=== PATIENT | female | born 1930 | race Caucasian/White ===

== ENCOUNTER 2016-09-02 14:00 | Outpatient (CLI) | payer OTHER ==
--- NOTE | 2016-09-02 15:34 | DIAGNOSTIC IMAGING REPORT ---
PROCEDURE: US BILATERAL CAROTID DOPPLER INDICATION: FACIAL ASYMMETRY TECHNIQUE: Color Doppler duplex imaging of the carotid and vertebral vessels. COMPARISON: None. FINDINGS: Right carotid system: No significant stenosis visualized. The waveforms are normal. Left carotid system: No significant stenosis visualized. The waveforms are normal. Vertebral System: Antegrade vertebral artery flow bilaterally. Right common carotid artery peak systolic velocity 99.1 cm/second. Right internal carotid artery peak systolic velocity 98.0 cm/second. Right external carotid artery peak systolic velocity 95.7 cm/second. Right qjvoynlt-fa-lcsmiv carotid artery ratio 1.3 Right vertebral artery peak systolic velocity 69.6 cm/second. Left common carotid artery peak systolic velocity 90.1 cm/second. Left internal carotid artery peak systolic velocity 94.8 cm/second. Left external carotid artery peak systolic velocity 113.6 cm/second. Left eqmolcqw-io-qbrjvv carotid artery ratio 1.1 Left vertebral artery peak systolic velocity 60.5 cm/second. IMPRESSION: 1. No hemodynamically significant stenosis in either carotid system. Minimal plaque bilaterally. 2. Antegrade vertebral artery flow bilaterally. Velocity criteria are extrapolated from diameter data as defined by the Society of Radiologists in Ultrasound Consensus Conference, Radiology 2003; 229; 340-346.
--- NOTE | 2016-09-02 15:34 | DIAGNOSTIC IMAGING REPORT ---
PROCEDURE: US BILATERAL CAROTID DOPPLER INDICATION: FACIAL ASYMMETRY TECHNIQUE: Color Doppler duplex imaging of the carotid and vertebral vessels. COMPARISON: None. FINDINGS: Right carotid system: No significant stenosis visualized. The waveforms are normal. Left carotid system: No significant stenosis visualized. The waveforms are normal. Vertebral System: Antegrade vertebral artery flow bilaterally. Right common carotid artery peak systolic velocity 99.1 cm/second. Right internal carotid artery peak systolic velocity 98.0 cm/second. Right external carotid artery peak systolic velocity 95.7 cm/second. Right ndxkwber-pz-ntimak carotid artery ratio 1.3 Right vertebral artery peak systolic velocity 69.6 cm/second. Left common carotid artery peak systolic velocity 90.1 cm/second. Left internal carotid artery peak systolic velocity 94.8 cm/second. Left external carotid artery peak systolic velocity 113.6 cm/second. Left cpluxdej-nz-nfoynp carotid artery ratio 1.1 Left vertebral artery peak systolic velocity 60.5 cm/second. IMPRESSION: 1. No hemodynamically significant stenosis in either carotid system. Minimal plaque bilaterally. 2. Antegrade vertebral artery flow bilaterally. Velocity criteria are extrapolated from diameter data as defined by the Society of Radiologists in Ultrasound Consensus Conference, Radiology 2003; 229; 340-346.
== END 2016-09-02 23:00 ==
LOC: US SRH 14:00
DX: Q67.0 Congenital facial asymmetry (principal)